=== PATIENT | female | born 1960 | race American Indian/Alaskan Native ===

== ENCOUNTER 2021-01-22 14:08 | Emergency (ER) | payer OTHER ==
[2021-01-22 14:46] VITALS: BP 120/60
--- NOTE | 2021-01-22 16:10 | Event Note ---
ED Screening Note Date of service: 01/22/21 Time: 16:07 ED Screening Note: 60-year-old female patient with history of "curvature of the spine" presents to the emergency department with complaints of severe lower back pain starting 4 days ago. Patient states the pain began after she was on a ride at an amusement park and "the ride jerked her the wrong way." Patient is ambulatory at baseline but has been unable to ambulate without assistance since the pain began. No history of prior back surgeries. Patient has been taking Tylenol with limited relief. Pain does not radiate. General: Awake, appropriately interactive, no acute distress. Neck: Supple. Full range of motion intact. Cardiovascular: Normal peripheral perfusion. Pulmonary: No respiratory distress. Patient is speaking normally without use of accessory muscles. Skin: No apparent rashes or lesions. Neurological: No facial asymmetry. Speech is clear. Follows commands. Patient is alert and oriented. Musculoskeletal: Unable to ambulate secondary to back pain; patient is currently sitting in wheelchair. Psych: Cooperative. Appropriate mood and affect. Exam limited in triage. Order for diagnostic imaging deferred to additional ED providers following complete history and comprehensive physical assessment. I have greeted and performed a focused rapid initial assessment of this patient. A comprehensive ED assessment and evaluation of the patient, analysis of all test results, and completion of the medical decision-making process will be conducted by additional ED providers. This initial assessment/diagnostic orders/clinical plan/treatment(s) is/are subject to change based on patients health status, clinical progression and re-assessment. Further treatment and workup at subsequent clinical provider's discretion. Patient/guardian urged not to elope from the ED as their condition may be serious if not clinically assessed and managed.
[2021-01-22] MEDS ORDERED: KETOROLAC 60 MG/2 ML INJ IM ONE (18:08)
[2021-01-22] MEDS ORDERED: oxyCODONE /ACETAMINOPHEN 5-325MG TAB PO ONE ×2 (18:08→18:18)
--- NOTE | 2021-01-22 18:09 | Emergency Department Report ---
ED Back Pain/Injury HPI - General Chief Complaint: Back Pain/Injury Stated Complaint: BACK PAIN Time Seen by Provider: 01/22/21 15:31 Source: patient Limitations: No Limitations - History of Present Illness Initial Comments: 60-year-old female with a past medical history of scoliosis presents to the ER today with complaints of severe low back pain. Patient states that symptoms started about 4 days ago. Patient states that she was on a roller coaster while at an amusement park 4 days ago. She states that it was a short roller coaster ride, but there was lots of jerking around on the right. She states that when she got of the right she was fine but after driving home that night she started with pain in her lower back. She states that it was severe to the point where s he could not get out the car. She stated it was only a 30-minute drive. Patient states that since then she has been having this constant pain in her lower back which is nonradiating but worse when she moves when she stands when she walks and when she bends. She states that she has not had any associated abdominal pain, lower extremity numbness, tingling, or weakness. And she has not had any saddle anesthesia, bowel or bladder incontinence, constipation or urinary retention. She has been taking [id number] Tylenol and has been using [id number]-[id number] lidocaine patches but she states that they have not been helping very much. She denies any history of back surgeries in the past or spinal injections and she currently does not have a painter tumbling barrel or orthospine specialist. MD Complaint: back pain -: Gradual, days(s) (4) - Related Data Previous Rx's Medication Instructions Recorded Last Taken Type HYDROcodone/APAP 5-325 [[place] 1 each PO Q6HR PRN #12 tablet 01/22/21 Unknown Rx 5/325] Ketorolac [Toradol] 10 mg PO Q6H PRN #20 tablet 01/22/21 Unknown Rx Metaxalone [Skelaxin] 800 mg PO TID #30 tablet 01/22/21 Unknown Rx Allergies Allergy/AdvReac Type Severity Reaction Status Date / Time No Known Allergies Allergy Unverified 01/22/21 14:42 ED Review of Systems ROS: Stated complaint: BACK PAIN Other details as noted in HPI Comment: All other systems reviewed and negative Constitutional: denies: chills, fever Eyes: denies: eye pain, eye discharge, vision change ENT: denies: ear pain, throat pain, dental pain, hearing loss, epistaxis, congestion Respiratory: denies: cough, shortness of breath, SOB with exertion, SOB at rest, wheezing Cardiovascular: denies: chest pain, palpitations, dyspnea on exertion, orthopnea, edema, syncope, paroxysmal nocturnal dyspnea Endocrine: no symptoms reported Gastrointestinal: denies: abdominal pain, nausea, vomiting, diarrhea, constipation, hematemesis, melena, hematochezia Genitourinary: denies: urgency, dysuria, discharge Musculoskeletal: back pain. denies: joint swelling, arthralgia Skin: denies: rash, lesions, change in color, change in hair/nails Neurological: denies: headache, weakness, numbness, paresthesias, confusion, abnormal gait, vertigo Psychiatric: denies: anxiety, depression, auditory hallucinations, visual hallucinations, homicidal thoughts Hematological/Lymphatic: denies: easy bleeding, easy bruising, swollen glands ED Past Medical Hx - Past Medical History Previous Medical History?: No - Surgical History Past Surgical History?: No - Social History Smoking Status: Never Smoker Substance Use Type: None - Medications Home Medications: Home Medications Medication Instructions Recorded Confirmed Last Taken Type HYDROcodone/APAP 5-325 [[place] 1 each PO Q6HR PRN #12 tablet 01/22/21 Unknown Rx 5/325] Ketorolac [Toradol] 10 mg PO Q6H PRN #20 tablet 01/22/21 Unknown Rx Metaxalone [Skelaxin] 800 mg PO TID #30 tablet 01/22/21 Unknown Rx ED Physical Exam - General Limitations: No Limitations General appearance: alert, in distress (Secondary to pain) - Head Head exam: Present: atraumatic, normocephalic, normal inspection - Eye Eye exam: Present: normal appearance, PERRL, EOMI Pupils: Present: normal accommodation - ENT ENT exam: Present: normal exam, mucous membranes moist - Neck Neck exam: Present: normal inspection, full ROM. Absent: meningismus - Respiratory Respiratory exam: Present: normal lung sounds bilaterally. Absent: respiratory distress, wheezes, rales, rhonchi - Cardiovascular Cardiovascular Exam: Present: regular rate, normal rhythm, normal heart sounds - GI/Abdominal GI/Abdominal exam: Present: soft. Absent: distended, tenderness, guarding, rebound - Extremities Exam Extremities exam: Present: normal inspection, full ROM, normal capillary refill. Absent: tenderness, pedal edema, joint swelling, calf tenderness - Back Exam Back exam: Present: normal inspection, paraspinal tenderness (mid lumbar left and right with spasms noted on left), vertebral tenderness (severe, mid lumbar area), other (ROM not tested due patient discomfort and pain ) - Expanded Back Exam Expanded Back exam: Present: normal rectal tone - Neurological Exam Neurological exam: Present: alert, oriented X3, CN II-XII intact. Absent: motor sensory deficit - Psychiatric Psychiatric exam: Present: normal affect, normal mood - Skin Skin exam: Present: intact ED Course Vital Signs 01/22/21 14:42 Temperature 98.5 F Pulse Rate 69 Respiratory 20 Rate Blood Pressure 120/60 O2 Sat by Pulse 100 Oximetry ED Medical Decision Making - Radiology Data Radiology results: report reviewed Patient: SADI MORSE MR#: [id number] : 1960 Acct:[id number] Age/Sex: 60 / F ADM Date: 01/22/21 Loc: ED Attending Dr: Ordering Physician: ROB TURNER Date of Service: 01/22/21 Procedure(s): XR spine lumbosacral 2-3V Accession Number(s): [id number] cc: ROB TURNER Fluoro Time In Minutes: LUMBAR SPINE 2 VIEWS INDICATION / CLINICAL INFORMATION: severe back pain. COMPARISON: None available. FINDINGS: VERTEBRAE: No fracture. No significant malalignment. DISC SPACES:No significant abnormality. FACET JOINTS:No significant abnormality. ADDITIONAL FINDINGS: Mild scoliosis with convexity towards left centered at L2. IMPRESSION: 1. No significant abnormality. Signer Name: Bill Franco MD Signed: 01/22/2021 7:05 PM Workstation Name: [id number] Transcribed By: TL Dictated By: Bill Franco MD Electronically Authenticated By: Bill Franco MD Signed Date/Time: 01/22/211904 DD/ 03 TD/TT: - Medical Decision Making 2018: Patient reports feeling much better after medications given in the ER. Is currently resting much more comfortably in the bed. She is currently not in any significant distress. She appears well and she is not toxic. She is neurologically intact with no saddle anesthesia with normal rectal tone, bowel or bladder incontinence, and no lower extremity weakness. Lumbar spine x-ray reviewed and shows nothing acute. Her history, physical examination and diagnostic testing does not suggest the presence of acute spinal epidural abscess, acute epidural bleed, cauda equina syndrome, abdominal/thoracic aortic aneurysm, aortic dissection or other acute process requiring further testing, treatment or consultation in the emergency department. The vital signs have been stable. Discussed x-ray results with patient. Discussed suspected diagnosis and treatment plan with patient. The patient condition is stable and appropriate for discharge. The patient will pursue further outpatient evaluation with the primary care physician or other designated or consulting physician as indicated in the discharge instructions. Critical care attestation.: If time is entered above; I have spent that time in minutes in the direct care of this critically ill patient, excluding procedure time. ED Disposition Clinical Impression: Lumbar spine strain, Lumbar paraspinal muscle spasm Disposition: TO HOME OR SELFCARE Is pt being admited?: No Does the pt Need Aspirin: No Condition: Stable Instructions: Muscle Cramps and Spasms, [id number], Lumbar Strain Additional Instructions: Take the Skelaxin, the Toradol and the hydrocodone as prescribed as needed for pain. Follow the back stretching exercises on your discharge instructions. Follow-up with the orthospine specialist in 1 to 2 weeks especially if your symptoms persist. Return to the ER if your symptoms changes or worsens in any way. Prescriptions: HYDROcodone/APAP 5-325 [[place] 5/325] 1 each PO Q6HR PRN #12 tablet PRN Reason: Pain Metaxalone [Skelaxin] 800 mg PO TID #30 tablet Ketorolac [Toradol] 10 mg PO Q6H PRN #20 tablet PRN Reason: Pain Referrals: [facility] [Provider Group] - 7-10 days ([place] Location: [address] [place] [address] ) Time of Disposition: 20:16
[2021-01-22] MEDS ORDERED: METAXALONE 800 MG TAB PO ONE (19:08)
--- NOTE | 2021-01-22 19:10 | XRay Report ---
LUMBAR SPINE 2 VIEWS INDICATION / CLINICAL INFORMATION: severe back pain. COMPARISON: None available. FINDINGS: VERTEBRAE: No fracture. No significant malalignment. DISC SPACES:No significant abnormality. FACET JOINTS:No significant abnormality. ADDITIONAL FINDINGS: Mild scoliosis with convexity towards left centered at L2. IMPRESSION: 1. No significant abnormality. Signer Name: Bill Franco MD Signed: 01/22/2021 7:05 PM Workstation Name: [id number]
== END 2021-01-22 22:00 | disposition home or self-care (01) ==
LOC: ED 14:08
DX: S39.012A Strain of muscle, fascia and tendon of lower back, initial encounter (principal); M62.830 Muscle spasm of back; Z79.899 Other long term (current) drug therapy; X50.1XXA Overexertion from prolonged static or awkward postures, initial encounter; Y93.89 Activity, other specified; Y92.89 Other specified places as the place of occurrence of the external cause; Y99.8 Other external cause status
CPT/HCPCS: 72100; 96372; 99283; J1885

== ENCOUNTER 2021-03-03 12:36 | Emergency (ER) | payer OTHER ==
[2021-03-03 13:56] VITALS: BP 116/61
--- NOTE | 2021-03-03 15:48 | Emergency Department Report ---
ED General Adult HPI - General Chief complaint: Extremity Injury, Lower Stated complaint: LEG PAIN Time Seen by Provider: 03/03/21 15:39 Source: patient Mode of arrival: Ambulatory Limitations: No Limitations - History of Present Illness Initial comments: Patient is a 60-year-old female presents emergency room complaints of needing a refill of her medications. She has her prescriptions with her and she is on levothyroxine 125 mcg daily and Metformin 1000 mg twice daily. She still has a few pills of her Metformin left and has been taking it daily. She states that she has been out of her levothyroxine for approximately 7 to 10 days. She states due to being off her medication she usually feels fatigue and brain fog. She denies any other complaints at this time. She states that she recently moved here and has not yet set up a primary care physician. She denies any other medical history. She denies any allergies to medications. - Related Data Previous Rx's Medication Instructions Recorded Last Taken Type HYDROcodone/APAP 5-325 [[place] 1 each PO Q6HR PRN #12 tablet 01/22/21 Unknown Rx 5/325] Ketorolac [Toradol] 10 mg PO Q6H PRN #20 tablet 01/22/21 Unknown Rx Metaxalone [Skelaxin] 800 mg PO TID #30 tablet 01/22/21 Unknown Rx Levothyroxine Sodium 125 mcg PO DAILY #30 capsule 03/03/21 Unknown Rx [Levothyroxine] Metformin HCl [metFORMIN] 1,000 mg PO BID #60 tablet 03/03/21 Unknown Rx Allergies Allergy/AdvReac Type Severity Reaction Status Date / Time No Known Allergies Allergy Verified 03/03/21 13:56 ED Review of Systems ROS: Stated complaint: LEG PAIN Other details as noted in HPI Comment: All other systems reviewed and negative ED Past Medical Hx - Past Medical History Previous Medical History?: No - Surgical History Past Surgical History?: No - Social History Smoking Status: Never Smoker Substance Use Type: None - Medications Home Medications: Home Medications Medication Instructions Recorded Confirmed Last Taken Type HYDROcodone/APAP 5-325 [[place] 1 each PO Q6HR PRN #12 tablet 01/22/21 Unknown Rx 5/325] Ketorolac [Toradol] 10 mg PO Q6H PRN #20 tablet 01/22/21 Unknown Rx Metaxalone [Skelaxin] 800 mg PO TID #30 tablet 01/22/21 Unknown Rx Levothyroxine Sodium 125 mcg PO DAILY #30 capsule 03/03/21 Unknown Rx [Levothyroxine] Metformin HCl [metFORMIN] 1,000 mg PO BID #60 tablet 03/03/21 Unknown Rx ED Physical Exam - General Limitations: No Limitations General appearance: alert, in no apparent distress - Head Head exam: Present: atraumatic, normocephalic - Eye Eye exam: Present: normal appearance - ENT ENT exam: Present: mucous membranes moist - Respiratory Respiratory exam: Absent: respiratory distress, accessory muscle use - Neurological Exam Neurological exam: Present: alert, oriented X3 - Psychiatric Psychiatric exam: Present: normal affect, normal mood - Skin Skin exam: Present: warm, dry, intact ED Course Vital Signs 03/03/21 13:53 Temperature 98.2 F Pulse Rate 72 Respiratory 14 Rate Blood Pressure 116/61 [Right] O2 Sat by Pulse 100 Oximetry Critical care attestation.: If time is entered above; I have spent that time in minutes in the direct care of this critically ill patient, excluding procedure time. ED Disposition Clinical Impression: Medication refill Disposition: 01 HOME / SELF CARE / HOMELESS Is pt being admited?: No Does the pt Need Aspirin: No Condition: Stable Additional Instructions: Please take medication as prescribed. Follow-up with your primary care doctor. Return to emergency room for any new or worsening symptoms. Prescriptions: Levothyroxine Sodium [Levothyroxine] 125 mcg PO DAILY #30 capsule Metformin HCl [metFORMIN] 1,000 mg PO BID #60 tablet Referrals: KATY TALLEY MD [Staff Physician] - 3-[address] [facility] [Provider Group] - 3-5 Days CARLINE HIGGINS MD [Staff Physician] - 3-5 Days Time of Disposition: 15:46 Print Language: GERMAN
--- NOTE | 2021-03-03 16:03 | Emergency Department Report ---
ED Back Pain/Injury HPI - General Chief Complaint: Extremity Injury, Lower Stated Complaint: LEG PAIN Time Seen by Provider: 03/03/21 15:39 Source: patient Limitations: No Limitations - History of Present Illness Initial Comments: Patient is a 60-year-old female presents emergency room complaints of left lower back pain that radiates to her left gluteus and down her left leg that began a week ago. She states that she has a history of sciatica and believes that she exacerbated her sciatica. She denies any fall, injury, trauma. She has not followed up with a business account specialist or primary care doctor. She denies any fever, nausea, vomiting, diarrhea, urinary symptoms, numbness, weakness, bowel or bladder incontinence. She denies any history of cancer, IV drug use, steroid use. She denies any past medical history. She denies any history of diabetes. No allergies to medications. - Related Data Previous Rx's Medication Instructions Recorded Last Taken Type HYDROcodone/APAP 5-325 [[place] 1 each PO Q6HR PRN #12 tablet 01/22/21 Unknown Rx 5/325] Ketorolac [Toradol] 10 mg PO Q6H PRN #20 tablet 01/22/21 Unknown Rx Metaxalone [Skelaxin] 800 mg PO TID #30 tablet 01/22/21 Unknown Rx Menthol/Camphor [[place] 1 applicatio TP BID #18 oint...g. 03/03/21 Unknown Rx Ointment] Naproxen 375 mg PO BID PRN #20 tablet 03/03/21 Unknown Rx Prednisone [predniSONE 10 mg 10 mg PO .TAPER #1 tab.ds.pk 03/03/21 Unknown Rx (6-Day Pack, 21 Tabs)] methOCARBAMOL [Robaxin TAB] 500 mg PO BID PRN #20 tab 03/03/21 Unknown Rx traMADoL [Ultram 50 MG tab] 50 mg PO Q6HR PRN #12 tablet 03/03/21 Unknown Rx Allergies Allergy/AdvReac Type Severity Reaction Status Date / Time No Known Allergies Allergy Verified 03/03/21 13:56 ED Review of Systems ROS: Stated complaint: LEG PAIN Other details as noted in HPI Comment: All other systems reviewed and negative ED Past Medical Hx - Past Medical History Previous Medical History?: No - Surgical History Past Surgical History?: No - Social History Smoking Status: Never Smoker Substance Use Type: None - Medications Home Medications: Home Medications Medication Instructions Recorded Confirmed Last Taken Type HYDROcodone/APAP 5-325 [[place] 1 each PO Q6HR PRN #12 tablet 01/22/21 Unknown Rx 5/325] Ketorolac [Toradol] 10 mg PO Q6H PRN #20 tablet 01/22/21 Unknown Rx Metaxalone [Skelaxin] 800 mg PO TID #30 tablet 01/22/21 Unknown Rx Menthol/Camphor [[place] 1 applicatio TP BID #18 oint...g. 03/03/21 Unknown Rx Ointment] Naproxen 375 mg PO BID PRN #20 tablet 03/03/21 Unknown Rx Prednisone [predniSONE 10 mg 10 mg PO .TAPER #1 tab.ds.pk 03/03/21 Unknown Rx (6-Day Pack, 21 Tabs)] methOCARBAMOL [Robaxin TAB] 500 mg PO BID PRN #20 tab 03/03/21 Unknown Rx traMADoL [Ultram 50 MG tab] 50 mg PO Q6HR PRN #12 tablet 03/03/21 Unknown Rx ED Physical Exam - General Limitations: No Limitations General appearance: alert, in no apparent distress - Head Head exam: Present: atraumatic, normocephalic - Eye Eye exam: Present: normal appearance - ENT ENT exam: Present: mucous membranes moist - Neck Neck exam: Present: normal inspection, full ROM. Absent: tenderness, meningismus - Respiratory Respiratory exam: Present: normal lung sounds bilaterally. Absent: respiratory distress, wheezes, rales, rhonchi, stridor, chest wall tenderness, accessory muscle use, decreased breath sounds, prolonged expiratory - Cardiovascular Cardiovascular Exam: Present: regular rate, normal rhythm, normal heart sounds. Absent: systolic murmur, diastolic murmur, rubs, gallop - Extremities Exam Extremities exam: Present: normal inspection, full ROM, normal capillary refill. Absent: tenderness, pedal edema, joint swelling, calf tenderness - Back Exam Back exam: Present: normal inspection, full ROM, paraspinal tenderness (left sided lumbar paraspinal ttp, no midline C-spine, T-spine or L-spine ttp, no step offs, no deformities, pain with SLR of the left leg, no pain with SLR of the right leg). Absent: vertebral tenderness - Neurological Exam Neurological exam: Present: alert, oriented X3, CN II-XII intact, normal gait. Absent: motor sensory deficit - Psychiatric Psychiatric exam: Present: normal affect, normal mood - Skin Skin exam: Present: warm, dry, intact ED Course Vital Signs 03/03/21 13:53 Temperature 98.2 F Pulse Rate 72 Respiratory 14 Rate Blood Pressure 116/61 [Right] O2 Sat by Pulse 100 Oximetry ED Medical Decision Making - Medical Decision Making Patient is a 60-year-old female presents emergency room complaints of left lower back pain that radiates to her left gluteus and down her left leg that began a week ago. She states that she has a history of sciatica and believes that she exacerbated her sciatica. She denies any fall, injury, trauma. She has not followed up with a business account specialist or primary care doctor. She denies any fever, nausea, vomiting, diarrhea, urinary symptoms, numbness, weakness, bowel or bladder incontinence. She denies any history of cancer, IV drug use, steroid use. She denies any past medical history. She denies any history of diabetes. No allergies to medications. Vitals are normal. On exam:left sided lumbar paraspinal ttp, no midline C-spine, T-spine or L-spine ttp, no step offs, no deformities, pain with SLR of the left leg, no pain with SLR of the right leg. Examination appears most consistent with sciatica versus lumbar radiculopathy. Patient has no red flag warning signs of back pain, no trauma, no unexplained weight loss, no neuro deficits, no fever, no IV drug use, no steroid use, no h istory of cancer, no saddle numbness. Patient given prescription for medications. Advised patient Please take medication as prescribed. Follow-up with your primary care doctor. follow up with business account specialist. Return to emergency room for any new or worsening symptoms. Critical care attestation.: If time is entered above; I have spent that time in minutes in the direct care of this critically ill patient, excluding procedure time. ED Disposition Clinical Impression: Sciatica Qualifiers: Laterality: left Qualified Code(s): M54.32 - Sciatica, left side Disposition: 01 HOME / SELF CARE / HOMELESS Is pt being admited?: No Does the pt Need Aspirin: No Condition: Stable Instructions: Sciatica Additional Instructions: Please take medication as prescribed. Follow-up with your primary care doctor. follow up with business account specialist. Return to emergency room for any new or worsening symptoms. Prescriptions: Naproxen 375 mg PO BID PRN #20 tablet PRN Reason: moderate pain Prednisone [predniSONE 10 mg (6-Day Pack, 21 Tabs)] 10 mg PO .TAPER #1 tab.ds.pk methOCARBAMOL [Robaxin TAB] 500 mg PO BID PRN #20 tab PRN Reason: muscle spasm/pain Menthol/Camphor [[place] Ointment] 1 applicatio TP BID #18 oint...g. traMADoL [Ultram 50 MG tab] 50 mg PO Q6HR PRN #12 tablet PRN Reason: Pain , Severe (7-10) Referrals: [facility] [Provider Group] - 3-5 Days CARLINE HIGGINS MD [Staff Physician] - 3-5 Days KATY TALLEY MD [Staff Physician] - 3-5 Days [place] WILBURN II, MD [Staff Physician] - 3-5 Days (business account specialist) Print Language: GREEK
== END 2021-03-03 16:22 | disposition home or self-care (01) ==
LOC: ED 12:36
DX: M54.32 Sciatica, left side (principal)
CPT/HCPCS: 99281

== ENCOUNTER 2021-09-23 15:49 | Emergency (ER) | payer OTHER ==
--- NOTE | 2021-09-23 21:37 | Emergency Department Report ---
ED General Adult HPI - General Chief complaint: Back Pain/Injury Stated complaint: BACK PAIN PUI?: No Time Seen by Provider: 09/23/21 20:50 Source: patient, EMS ( EMS documentation not available at time of chart dictation ), RN notes reviewed, old records reviewed Mode of arrival: Stretcher Limitations: No Limitations - History of Present Illness Initial comments: The patient is a 61-year-old female with a history of sciatica, who presents to the ER today with a complaint of typical sciatica pain; left posterior gluteal pain radiating down her left posterior hamstring. No additional injuries and complaints. No bladder or bowel retention or incontinence or saddle anesthesia. No abdominal pain. No fevers or chills. No IV drug use. -: Gradual, days(s) Location: buttocks, left, lower extremity Radiation: extremity Quality: aching, constant Consistency: constant Improves with: none Worsens with: movement Associated Symptoms: denies other symptoms - Related Data Previous Rx's Medication Instructions Recorded Last Taken Type Ketorolac [Toradol] 10 mg PO Q6H PRN #20 tablet 01/22/21 Unknown Rx Metaxalone [Skelaxin] 800 mg PO TID #30 tablet 01/22/21 Unknown Rx Menthol/Camphor [Vernon Picacho 1 applicatio TP BID #18 oint...g. 03/03/21 Unknown Rx Ointment] Naproxen 375 mg PO BID PRN #20 tablet 03/03/21 Unknown Rx Prednisone [predniSONE 10 mg 10 mg PO .TAPER #1 tab.ds.pk 03/03/21 Unknown Rx (6-Day Pack, 21 Tabs)] methOCARBAMOL [Robaxin TAB] 500 mg PO BID PRN #20 tab 03/03/21 Unknown Rx Acetaminophen [Non-Aspirin Extra 500 mg PO Q6HR PRN #30 tablet 09/23/21 Unknown Rx Strength] Ibuprofen [Motrin] 600 mg PO Q8H PRN #30 tablet 09/23/21 Unknown Rx methOCARBAMOL [Robaxin TAB] 1,500 mg PO TID PRN #30 tab 09/23/21 Unknown Rx Allergies Allergy/AdvReac Type Severity Reaction Status Date / Time No Known Allergies Allergy Verified 09/23/21 15:54 ED Review of Systems ROS: Stated complaint: BACK PAIN Other details as noted in HPI Comment: All other systems reviewed and negative Gastrointestinal: denies: abdominal pain Neurological: paresthesias. denies: weakness ED Past Medical Hx - Social History Smoking Status: Never Smoker Substance Use Type: None - Medications Home Medications: Home Medications Medication Instructions Recorded Confirmed Last Taken Type Ketorolac [Toradol] 10 mg PO Q6H PRN #20 tablet 01/22/21 Unknown Rx Metaxalone [Skelaxin] 800 mg PO TID #30 tablet 01/22/21 Unknown Rx Menthol/Camphor [Vernon Picacho 1 applicatio TP BID #18 oint...g. 03/03/21 Unknown Rx Ointment] Naproxen 375 mg PO BID PRN #20 tablet 03/03/21 Unknown Rx Prednisone [predniSONE 10 mg 10 mg PO .TAPER #1 tab.ds.pk 03/03/21 Unknown Rx (6-Day Pack, 21 Tabs)] methOCARBAMOL [Robaxin TAB] 500 mg PO BID PRN #20 tab 03/03/21 Unknown Rx Acetaminophen [Non-Aspirin Extra 500 mg PO Q6HR PRN #30 tablet 09/23/21 Unknown Rx Strength] Ibuprofen [Motrin] 600 mg PO Q8H PRN #30 tablet 09/23/21 Unknown Rx methOCARBAMOL [Robaxin TAB] 1,500 mg PO TID PRN #30 tab 09/23/21 Unknown Rx ED Physical Exam - General Limitations: No Limitations General appearance: alert, in no apparent distress - Head Head exam: Present: atraumatic, normocephalic - Eye Eye exam: Present: normal appearance, EOMI. Absent: nystagmus - ENT ENT exam: Present: normal exam, normal orophraynx, mucous membranes moist, normal external ear exam - Neck Neck exam: Present: normal inspection, full ROM. Absent: tenderness, meningismus - Respiratory Respiratory exam: Present: normal lung sounds bilaterally. Absent: respiratory distress, wheezes, rales, rhonchi, stridor, decreased breath sounds - Cardiovascular Cardiovascular Exam: Present: regular rate, normal rhythm, normal heart sounds. Absent: bradycardia, tachycardia, irregular rhythm, systolic murmur, diastolic murmur, rubs, gallop - GI/Abdominal GI/Abdominal exam: Present: soft. Absent: distended, tenderness, guarding, rebound, rigid, pulsatile mass - Extremities Exam Extremities exam: Present: normal inspection, full ROM, other (2+ pulses noted in the bilateral upper and lower extremities. There is no palpable cord. negative Homans sign. Muscular compartments are soft. The pelvis is stable.). Absent: pedal edema, calf tenderness - Back Exam Back exam: Present: normal inspection, paraspinal tenderness. Absent: tenderness, CVA tenderness (R), CVA tenderness (L), vertebral tenderness - Neurological Exam Neurological exam: Present: alert, oriented X3, normal gait, reflexes normal, other (No facial droop. Tongue midline. Extraocular movements intact bilaterally. Facial sensation intact to light touch in V1, V2, V3 distribution bilaterally. 5 and a 5 strength in 4 extremities. Sensation intact to light touch in 4 extremities.). Absent: motor sensory deficit (Sensation is intact to light touch and proprioception in the bilateral upper and lower extremities.) - Psychiatric Psychiatric exam: Present: normal affect, normal mood - Skin Skin exam: Present: warm, dry, intact, normal color. Absent: rash ED Course Vital Signs 09/23/21 21:48 Temperature 98.0 F Pulse Rate 74 Respiratory 18 Rate Blood Pressure 147/85 O2 Sat by Pulse 99 Oximetry ED Medical Decision Making - Lab Data Vital Signs 09/23/21 21:48 Temperature 98.0 F Pulse Rate 74 Respiratory 18 Rate Blood Pressure 147/85 O2 Sat by Pulse 99 Oximetry - Medical Decision Making Differential diagnosis, including but not limited to: Lumbar radiculopathy Assessment and plan: 61-year-old female, who is afebrile, with reassuring vital signs, with a known history of lumbar radiculopathy, with 5 out of 5 strength in 4 extremities, appropriate reflexes, sensation intact to light touch and proprioception in the upper and lower extremities, likely experiencing natural history of lumbar radiculopathy. No pulsatile abdominal mass, no fever, no IV drug use, no midline spinal tenderness, moving 4 extremities, and pushing off with her feet, ankles, and legs with brisk strength. Rest, ice, compression, elevation, as needed medication, outpatient follow-up with primary care, physical therapy, neurology and/or spine. Patient educated as to the natural history of lumbar radiculopathy. Also provided with contact information for local spine surgery. Return precautions reviewed. All questions answered. Also discussed alternative therapy in complementary medicine Critical care attestation.: If time is entered above; I have spent that time in minutes in the direct care of this critically ill patient, excluding procedure time. ED Disposition Clinical Impression: Lumbar radiculopathy Disposition: 01 HOME / SELF CARE / HOMELESS Is pt being admited?: No Does the pt Need Aspirin: No Condition: Stable Instructions: Radicular Pain Additional Instructions: As we discussed, symptoms likely coming from sciatica/lumbar radiculopathy. Alternate ice packs and heat packs as needed for physical pain, participate in physical activities as tolerated, and avoid heavy lifting. Patient would likely benefit from rehabilitation and physical therapy, which can be coordinated by a slide maker, sports medicine physician, spine physician, or primary care doctor. Patient may also benefit from complementary medicine, such as acupuncture, massage, or aquatic therapy. Recommend follow-up with primary care, spine, pain, sports or physiatry for initiation of outpatient physical therapy and rehabilitation within the next 2 weeks. May take the prescribed medications as needed and directed. Please return to the emergency room right away with new pain, worsened pain, migration of pain, projectile vomiting, change in mental status, confusion, inability tolerate liquid feeds, new, worsened or different symptoms not present on the initial emergency room evaluation Prescriptions: Ibuprofen [Motrin] 600 mg PO Q8H PRN #30 tablet PRN Reason: Pain Acetaminophen [Non-Aspirin Extra Strength] 500 mg PO Q6HR PRN #30 tablet PRN Reason: Pain , Severe (7-10) methOCARBAMOL [Robaxin TAB] 1,500 mg PO TID PRN #30 tab PRN Reason: Pain Referrals: [facility] [Provider Group] - 3-5 Days [facility] [Provider Group] - 3-5 Days Forms: Work/School Release Form(ED)
[2021-09-23] MEDS ORDERED: KETOROLAC 30 MG/1 ML INJ IM ONE (21:46)
[2021-09-23] MEDS ORDERED: ACETAMINOPHEN 500 MG TAB PO ONE (21:46)
[2021-09-23 21:51] VITALS: BP 147/85
== END 2021-09-23 23:09 | disposition home or self-care (01) ==
LOC: ED 15:49
DX: M54.16 Radiculopathy, lumbar region (principal)
CPT/HCPCS: 99283; J1885